=== PATIENT | female | born 1970 | race American Indian/Alaskan Native ===

== ENCOUNTER 2017-12-10 11:12 | Emergency (ER) | payer OTHER ==
[2017-12-10 11:18] VITALS: BP 109/74
--- NOTE | 2017-12-10 12:18 | Emergency Department Report ---
ED Neck Pain/Injury HPI - General Chief Complaint: Neck Pain/Injury Stated Complaint: HEAD/NECK PAIN Time Seen by Provider: 12/10/17 11:59 Mode of arrival: Ambulatory Limitations: No Limitations - History of Present Illness Initial Comments: 47-year-old female with history of cervical herniated discs presents with neck pain and headache 1 week. Patient reports history of chronic headaches and neck pain secondary to accidents in the past. Patient states she typically has radiating pain into the left arm with associated paresthesias. She denies nausea, vomiting, fever. States no relief with aspirin at home. Patient denies any recent injury. Reports heavy lifting at work. MD Complaint: neck pain -: week(s) (1) Radiation: head, left upper extremity Severity: moderate Quality: aching Consistency: intermittent Improves With: none Worsens With: movement of neck Context: other (chronic pain) Associated Symptoms: headache, numbness, tingling. denies: fever, weakness, nausea, vomiting Treatments Prior to Arrival: other (aspirin) - Related Data Previous Rx's Medication Instructions Recorded Last Taken Type Butalb/Acetamin/Caff 50-325-40 1 tab PO Q6HR PRN #10 tab 12/10/17 Unknown Rx [Fioricet] Methocarbamol [Robaxin-750] 750 mg PO Q6HR PRN #20 tablet 12/10/17 Unknown Rx Naproxen [Naprosyn] 500 mg PO BID #20 tablet 12/10/17 Unknown Rx predniSONE [Prednisone] 50 mg PO DAILY #5 tablet 12/10/17 Unknown Rx Allergies Allergy/AdvReac Type Severity Reaction Status Date / Time No Known Allergies Allergy Unverified 12/10/17 11:18 ED Review of Systems ROS: Stated complaint: HEAD/NECK PAIN Other details as noted in HPI Comment: All other systems reviewed and negative Constitutional: denies: chills, fever Cardiovascular: denies: chest pain Gastrointestinal: denies: nausea, vomiting Musculoskeletal: as per HPI Neurological: headache, paresthesias ED Past Medical Hx - Past Medical History Previous Medical History?: No - Surgical History Past Surgical History?: No - Social History Smoking Status: Never Smoker Substance Use Type: None - Medications Home Medications: Home Medications Medication Instructions Recorded Confirmed Last Taken Type Butalb/Acetamin/Caff 50-325-40 1 tab PO Q6HR PRN #10 tab 12/10/17 Unknown Rx [Fioricet] Methocarbamol [Robaxin-750] 750 mg PO Q6HR PRN #20 tablet 12/10/17 Unknown Rx Naproxen [Naprosyn] 500 mg PO BID #20 tablet 12/10/17 Unknown Rx predniSONE [Prednisone] 50 mg PO DAILY #5 tablet 12/10/17 Unknown Rx ED Physical Exam - General Limitations: No Limitations General appearance: alert, in no apparent distress - Head Head exam: Present: atraumatic, normocephalic - Eye Eye exam: Present: normal appearance - ENT ENT exam: Present: mucous membranes moist - Neck Neck exam: Present: tenderness (left paraspinal cervical tenderness present, tenderness to left trapezius) - Respiratory Respiratory exam: Present: normal lung sounds bilaterally. Absent: respiratory distress - Cardiovascular Cardiovascular Exam: Present: regular rate, normal rhythm - GI/Abdominal GI/Abdominal exam: Present: soft. Absent: tenderness - Extremities Exam Extremities exam: Present: normal inspection. Absent: tenderness - Neurological Exam Neurological exam: Present: alert, oriented X3, motor sensory deficit ( paresthesias present in fingers of left hand; strength 5/5 in left arm) - Psychiatric Psychiatric exam: Present: normal affect, normal mood - Skin Skin exam: Present: warm, dry, intact, normal color. Absent: rash ED Course Vital Signs 12/10/17 11:16 Temperature 97.8 F Pulse Rate 72 Respiratory 16 Rate Blood Pressure 109/74 O2 Sat by Pulse 98 Oximetry ED Medical Decision Making - Medical Decision Making 47-year-old female with chronic headaches and neck pain secondary to herniated disc from past accident. Patient reported radiating pain into left arm with chronic paresthesias in left hand. Likely cervical radiculopathy. No new neuro symptoms other than left hand paresthesias. Strength normal. Prescription will be given for anti-inflammatory, steroids and muscle relaxer. Advised outpatient follow-up. Return precautions given - Differential Diagnosis chronic pain, tension MORALES, cervical radiculopathy Critical care attestation.: If time is entered above; I have spent that time in minutes in the direct care of this critically ill patient, excluding procedure time. ED Disposition Clinical Impression: Cervical radiculopathy, Headache Disposition: TO HOME OR SELFCARE Is pt being admited?: No Condition: Stable Instructions: Tension Headache (ED), Cervical Radiculopathy (ED) Prescriptions: Butalb/Acetamin/Caff 50-325-40 [Fioricet] 1 tab PO Q6HR PRN #10 tab PRN Reason: Headache Methocarbamol [Robaxin-750] 750 mg PO Q6HR PRN #20 tablet PRN Reason: Spasms Naproxen [Naprosyn] 500 mg PO BID #20 tablet predniSONE [Prednisone] 50 mg PO DAILY #5 tablet Referrals: PRIMARY CARE, [Primary Care Provider] - 3-5 Days ISAURA DOMINGUEZ MD [Staff Physician] - as needed VON TITUS MD [Referring] - as needed Forms: Work/School Release Form(ED) Time of Disposition: 12:22
== END 2017-12-10 12:51 | disposition home or self-care (01) ==
LOC: ED 11:12
DX: M54.12 Radiculopathy, cervical region (principal); R51 Headache; G89.29 Other chronic pain
CPT/HCPCS: 99282

== ENCOUNTER 2020-07-23 07:55 | Emergency (ER) | payer SELFPAY ==
--- NOTE | 2020-07-23 11:05 | Emergency Department Report ---
Chief Complaint: Skin/Abscess/Foreign Body Stated Complaint: HAVE BITES ON BOTH LEGS Time Seen by Provider: 07/23/20 09:51 - HPI History of Present Illness: This 49-year-old female with no prior medical conditions known to me who presents to the ED complaining of red itching bite simental to her bilateral lower ankles x2 days. Patient states that she noticed the bites on Wednesday morning when she got out of the bed. Patient states that she is currently staying at an extended stay and is unsure if there are bedbugs. She denies fever/chills/nausea vomiting abdominal pain or any other complaints. - ROS Review of Systems: As noted in HPI. All systems reviewed and negative. - Exam Vital Signs: Vital Signs 07/23/20 08:04 Temperature 98.4 F Pulse Rate 62 Respiratory 18 Rate Blood Pressure 116/75 O2 Sat by Pulse 99 Oximetry Physical Exam: GENERAL: Alert and oriented x3, no apparent distress, Normal Gait, atraumatic. HEAD: Head is normocephalic and a-traumatic. SKIN: Warm and dry, small, multiple, macular, erythematous, lesions noted at bilateral ankles consistent with insect bite. No ulceration or induration present. MSE screening note: Focused history and physical exam performed. Due to findings the following was ordered: ED Medical Decision Making - Medical Decision Making This 49-year-old female who presented with red itchy lesions consistent with insect bites on her bilateral lower ankles. Patient was in no acute distress. Medication prescriptions for patient. Discussed follow-up with primary care physician. Patient was in no respiratory distress or had any neurological deficit. At this time patient is safe for discharge. ED Disposition for MSE Clinical Impression: Insect bite Disposition: DC-01 TO HOME OR SELFCARE Is pt being admited?: No Does the pt Need Aspirin: No Condition: Stable Instructions: Insect Bite, Adult, Insect Bite, Adult, [id number] Additional Instructions: Make sure to follow up with the primary care physician as discussed. Take all your medications as you've been prescribed. If you have any worsening symptoms or develop new symptoms please return to ED immediately. Referrals: PRIMARY CARE, [Primary Care Provider] - 3-5 Days Forms: Work/School Release Form(ED) Time of Disposition: 11:06
== END 2020-07-23 11:34 | disposition home or self-care (01) ==
LOC: ED 07:55
CPT/HCPCS: 99281

== ENCOUNTER 2020-08-01 03:53 | Emergency (ER) | payer SELFPAY ==
[2020-08-01 07:25] VITALS: BP 123/86
--- NOTE | 2020-08-01 07:35 | Emergency Department Report ---
Chief Complaint: Vaginal Bleeding Stated Complaint: VAGINAL BLEEDING Time Seen by Provider: 08/01/20 07:31 - HPI History of Present Illness: 49-year-old -[place] female patient presents with complaints of singular large clot during her cycle yesterday. Patient states she does still have regular menstrual cycles and that yesterday her cycle was heavier than normal. She states that she use 3 tampons and 3 pads for the entire day. She denies bleeding through 1 pad per hour, fatigue, weakness, dizziness, chest pain, shortness of breath, dysuria/hematuria/urinary frequency, abdominal pain, vaginal discharge, or dyspareunia. Patient states she was concerned that she is never had any large clots during her cycle. She is not currently following with an [facility]. She denies any other past medical history or current medication use. - Exam Vital Signs: Vital Signs 08/01/20 08/01/20 03:56 07:25 Temperature 98.0 F Pulse Rate 64 51 L Respiratory 18 16 Rate Blood Pressure 108/73 Blood Pressure 123/86 [Right] O2 Sat by Pulse 98 99 Oximetry MSE screening note: Focused history and physical exam performed. Due to findings the following was ordered: ED Medical Decision Making - Medical Decision Making 49-year-old -[place] female patient presents with complaints of singular large clot during her cycle yesterday. Patient states she does still have regular menstrual cycles and that yesterday her cycle was heavier than normal. She states that she use 3 tampons and 3 pads for the entire day. She denies bleeding through 1 pad per hour, fatigue, weakness, dizziness, chest pain, shortness of breath, dysuria/hematuria/urinary frequency, abdominal pain, vaginal discharge, or dyspareunia. Patient states she was concerned that she is never had any large clots during her cycle. She is not currently following with an [facility] CL[facility]. She denies any other past medical history or current medication use. Vitals are normal. No abdominal tenderness on exam. She does admit to some cramping that feels like her normal menstrual cycle. Given history and physical, recommend patient follows up with [facility] for further assessment. She is well-appearing and stable for discharge home. Discussed signs and symptoms that should prompt immediate return to the emergency department in detail with patient who verbalized understanding. ED Disposition for MSE Clinical Impression: Episode of heavy vaginal bleeding Disposition: MED SCREENING EXAM-LEFT Is pt being admited?: No Condition: Stable Instructions: Dysfunctional Uterine Bleeding Referrals: [facility] [Provider Group] - 3-5 Days ED Physical Exam - General Limitations: No Limitations General appearance: alert, in no apparent distress - Head Head exam: Present: atraumatic, normocephalic - Eye Eye exam: Present: normal appearance. Absent: scleral icterus - Respiratory Respiratory exam: Absent: respiratory distress - Cardiovascular Cardiovascular Exam: Present: regular rate, normal rhythm - GI/Abdominal GI/Abdominal exam: Present: soft, normal bowel sounds. Absent: distended, tenderness, guarding, rebound, rigid - Back Exam Back exam: Present: normal inspection - Neurological Exam Neurological exam: Present: alert, oriented X3, normal gait - Psychiatric Psychiatric exam: Present: normal affect, normal mood - Skin Skin exam: Present: warm, dry, intact, normal color. Absent: rash ED Review of Systems ROS: Stated complaint: VAGINAL BLEEDING Other details as noted in HPI Constitutional: denies: chills, diaphoresis, fever, malaise, weakness Respiratory: denies: shortness of breath Cardiovascular: denies: chest pain Gastrointestinal: denies: abdominal pain, nausea, vomiting, diarrhea, constipation, hematemesis, melena, hematochezia Genitourinary: denies: urgency, dysuria, frequency, hematuria, discharge, dyspareunia Skin: denies: change in color Neurological: denies: headache, weakness
== END 2020-08-01 07:35 | disposition left against medical advice (07) ==
LOC: ED 03:53
DX: N93.9 Abnormal uterine and vaginal bleeding, unspecified (principal); Z53.21 Procedure and treatment not carried out due to patient leaving prior to being seen by health care provider